=== PATIENT | male | born 1980 | race African-American/Black ===

== ENCOUNTER 2023-01-29 16:53 | Emergency (ER) | payer MEDICAID ==
[2023-01-29] MEDS ORDERED: fentaNYL 100 MCG/2 ML VIAL IVP STA ×2 (17:54→18:41)
[2023-01-29] MEDS ORDERED: DROPERIDOL 5 MG/2 ML VIAL IVP STA (17:54)
[2023-01-29] MEDS ORDERED: SODIUM CHLORIDE 0.9% 1,000 ML IV STA (17:54)
--- NOTE | 2023-01-29 17:55 | ED Physician Documentation ---
PD HPI ABD PAIN - Stated complaint Stated Complaint: VOMIT - Chief complaint Chief Complaint: Abd Pain - History obtained from History obtained from: Patient - Additional information Additional information: 42-year-old gentleman with history of hypertension, has been out of his medications for a long time. He developed stomach upset yesterday, but today has been having severe generalized abdominal pain associate with vomiting and slightly runny stools. No sick contacts. He smokes cigarettes but denies alcohol or cannabis use. He has a history of a significant severe reaction to morphine. PD PAST MEDICAL HISTORY - Past Medical History Past Medical History: Yes Cardiovascular: Hypertension - Past Surgical History Past Surgical History: No - Allergies Allergies/Adverse Reactions: Allergies Allergy/AdvReac Type Severity Reaction Status Date / Time morphine Allergy Unknown Verified 01/29/23 17:17 - Social History Does the pt smoke?: No Smoking Status: Never smoker PD ED PE NORMAL - Vitals Vital signs reviewed: Yes - General General: Alert and oriented X 3, Other (Writhing in pain and uncomfortable) - Cardiac Cardiac: RRR, No murmur - Respiratory Respiratory: No respiratory distress, Clear bilaterally - Abdomen Abdomen: Soft, Non tender - Neuro Neuro: Alert and oriented X 3 Results - Vitals Vitals: Vital Signs - 24 hr 01/29/23 01/29/23 01/29/23 17:14 19:16 21:31 Temperature 36.3 C L 36.4 C L Heart Rate 96 72 81 Respiratory 18 18 16 Rate Blood Pressure 177/118 H 155/90 H 164/84 H O2 Saturation 99 98 97 Oxygen O2 Source Room air - EKG (time done) 1822 EKG releavant findings:: EKG personally interpreted by author of this note. Relevant findings are: Rate: Rate (enter#) (72) Rhythm: NSR (w freq pvcs) [place]: Normal Intervals: Normal DC QRS: Normal Ischemia: Normal ST segments - Labs Labs: Laboratory Tests 01/29/23 01/29/23 01/29/23 18:18 18:18 18:41 WBC 9.4 RBC 6.05 Hgb 16.8 Hct 50.1 MCV 82.8 MCH 27.8 MCHC 33.5 RDW 13.5 Plt Count 289 MPV 10.4 Neut # (Auto) 7.4 H Lymph # (Auto) 1.5 Faulk # (Auto) 0.5 Eos # (Auto) 0.0 Baso # (Auto) 0.0 Absolute Nucleated RBC 0.00 Nucleated RBC % 0.0 Sodium 138 Potassium 3.8 Chloride 102 Carbon Dioxide 25 Anion Gap 11.0 BUN 11 Creatinine 1.0 Estimated GFR (MDRD) 82 L Glucose 108 H Calcium 10.7 H Total Bilirubin 0.7 AST 25 ALT 20 Alkaline Phosphatase 82 Total Protein 8.5 Albumin 5.0 Globulin 3.5 Albumin/Globulin Ratio 1.4 Lipase 18 Urine Color YELLOW Urine Clarity CLEAR Urine pH 8.5 H Ur Specific [place] 1.015 Urine Protein 30 H Urine Glucose (UA) NEGATIVE Urine Ketones NEGATIVE Urine Occult Blood NEGATIVE Urine Nitrite NEGATIVE Urine Bilirubin NEGATIVE Urine Urobilinogen 0.2 (NORMAL) Ur Leukocyte Esterase NEGATIVE Urine RBC 0-5 Urine WBC 0-3 Ur Squamous Epith Cells RARE Squamous Urine Bacteria None Seen Urine Mucus Few Strands Ur Microscopic Review INDICATED Urine Culture Comments NOT INDICATED Urine Opiates Screen NEGATIVE Ur Buprenorphine Scrn NEGATIVE Ur Oxycodone Screen NEGATIVE Urine Methadone Screen NEGATIVE Ur Barbiturates Screen NEGATIVE Ur Tricyclics Screen NEGATIVE Ur Phencyclidine Scrn NEGATIVE Ur Amphetamine Screen NEGATIVE U Methamphetamines Scrn NEGATIVE U Benzodiazepines Scrn NEGATIVE Urine Cocaine Screen NEGATIVE U Cannabinoids Screen POSITIVE H Ur Drug Screen Comment CUTOFF CONC BELOW: - Rads (name of study) CT abdomen pelvis normal with exception of bladder wall thickening Relevant Findings:: Final report received, EMP independent interpretation of test PD Medical Decision Making - ED course ED course: He presents with abdominal pain that actually was very reminiscent of komal abinoid hyperemesis. Initially denied cannabis use, but drug screen was positive. Subsequently stated he did use daily. Initially got relief with fentanyl noting he has a morphine allergy and nausea medicine and subsequently much better after the administration of Haldol. He was nontender on reexamination prior to discharge. Departure - Departure Disposition: 01 Home, Self Care Clinical Impression: Abdominal pain Instructions: ED Abdominal Pain Unkn Cause Male Comments: The only abnormal result of significance was your bladder wall was thick on CT exam. You had a normal urinalysis so I do not think this is relatable to the current pain which again I think is related to cannabinoid hyperemesis given the pattern; Please decrease or cease use of cannabis.. That said you should follow-up with urologist for consideration for cystoscopy. Call your doctor to arrange a follow-up appointment, make the next available appointment. In the interim, return anytime if worse or if new symptoms develop. Forms: PCP List Discharge Date/Time: 01/29/23 21:32
[2023-01-29] MEDS ORDERED: METOCLOPRAMIDE 10 MG/2 ML VIAL IVP STA (18:04)
[2023-01-29 18:24] LABS: BASOPHILS % (AUTO) 0.4 %; EOSINOPHILS % (AUTO) 0.2 %; HCT - HEMATOCRIT 50.1 % (42.0-52.0); HGB - HEMOGLOBIN 16.8 g/dL (14.0-18.0); LYMPHOCYTES # (AUTO) 1.5 10^3/uL (1.5-3.5); LYMPHOCYTES % (AUTO) 15.8 %; MEAN CORPUSCULAR HEMOGLOBIN 27.8 pg (27.0-31.0); MEAN CORPUSCULAR HGB CONC 33.5 g/dL (32.0-36.0); MEAN CORPUSCULAR VOLUME 82.8 fL (80.0-94.0); MEAN PLATELET VOLUME 10.4 fL (7.4-11.4); MONOCYTES # (AUTO) 0.5 10^3/uL (0.0-1.0); MONOCYTES % (AUTO) 4.8 %; NEUTROPHILS # (AUTO) 7.4 10^3/uL (1.5-6.6); NEUTROPHILS % (AUTO) 78.5 %; PLT - PLATELET COUNT 289 10^3/uL (130-450); RED BLOOD COUNT 6.05 10^6/uL (4.70-6.10); RED CELL DISTRIBUTION WIDTH 13.5 % (12.0-15.0); WHITE BLOOD COUNT 9.4 x10^3/uL (4.8-10.8)
[2023-01-29 18:40] LABS: ALBUMIN/GLOBULIN RATIO 1.4 (1.0-2.2); BILIRUBIN,TOTAL 0.7 mg/dL (0.2-1.0); CALCIUM 10.7 mg/dL (8.5-10.3); POTASSIUM 3.8 mmol/L (3.5-4.5); TOTAL PROTEIN 8.5 g/dL (6.4-8.9)
[2023-01-29 18:54] LABS: BILIRUBIN,URINE NEGATIVE (NEGATIVE); GLUCOSE, URINE (UA) NEGATIVE (NEGATIVE); KETONES,URINE (UA) NEGATIVE (NEGATIVE); LEUKOCYTE ESTERASE, URINE NEGATIVE (NEGATIVE); NITRITE,URINE NEGATIVE (NEGATIVE); OCCULT BLOOD,URINE NEGATIVE (NEGATIVE); PH,URINE 8.5 PH (5.0-7.5); PROTEIN,URINE 30 mg/dL (NEGATIVE); UROBILINOGEN,URINE 0.2 (NORMAL) E.U./dL (NORMAL)
[2023-01-29 18:57] LABS: CLARITY,URINE CLEAR (CLEAR)
[2023-01-29] MEDS ORDERED: iohexoL-300 100 ML VIAL IVP ONE (19:02)
[2023-01-29 19:08] LABS: RBC,URINE 0-5 /HPF (0-5); SQUAMOUS EPITHELIAL CELL,UR RARE Squamous (<= Few); WBC,URINE 0-3 /HPF (0-3)
[2023-01-29 19:09] LABS: AMPHETAMINE SCREEN,URINE NEGATIVE (NEGATIVE); BACTERIA,URINE None Seen /HPF (None Seen); BARBITURATE SCREEN,UR NEGATIVE (NEGATIVE); BENZODIAZEPINES SCREEN, URINE NEGATIVE (NEGATIVE); BUPRENORPHINE SCREEN, URINE NEGATIVE (NEGATIVE); COCAINE SCREEN URINE NEGATIVE (NEGATIVE); METHADONE SCREEN, URINE NEGATIVE (NEGATIVE); METHAMPHETAMINES SCREEN, URINE NEGATIVE (NEGATIVE); MUCUS,URINE Few Strands; OPIATE SCREEN, URINE NEGATIVE (NEGATIVE); OXYCODONE SCREEN, URINE NEGATIVE (NEGATIVE); THC CANNABINOID SCREEN, URINE POSITIVE (NEGATIVE); TRICYCLIC ANTIDEPRESSANT,URINE NEGATIVE (NEGATIVE)
[2023-01-29] MEDS ORDERED: HALOPERIDOL 5 MG/ML VIAL IVP STA (19:47)
[2023-01-29] MEDS ORDERED: KETOROLAC 15 MG/ML VIAL IVP STA (19:47)
--- NOTE | 2023-01-29 20:18 | CT Report ---
PROCEDURE: ABDOMEN/PELVIS W INDICATIONS: IV only, abd pain CONTRAST: 100mL Omni 300 TECHNIQUE: After the administration of IV contrast, 5 mm thick sections acquired from the diaphragms to the symp hysis. 5 mm thick coronal and sagittal reformats were acquired. For radiation dose reduction, the f ollowing was used: automated exposure control, adjustment of mA and/or kV according to patient size. COMPARISON: None FINDINGS: Image quality: Excellent. Lung bases and heart: Unremarkable. Liver: No solid mass. Gallbladder and biliary tree: No radiopaque stones or wall thickening. No biliary dilation. Spleen: No splenomegaly. A few calcified granuloma are seen scattered in splenic parenchyma. Pancreas: No pancreatic ductal dilation. Adrenals: No adrenal nodule. Kidneys and ureters: No hydronephrosis. No renal cystic lesion which requires follow up. No solid mas s. Bowel and peritoneum: No bowel distension. No pathologic free fluid. The appendix is visualized in ri ght lower quadrant and is normal in size and appearance. Mild fecal stasis in the colon is seen. Lymph nodes: No central or retroperitoneal adenopathy. Vessels: No infrarenal aortic aneurysm. PELVIS Reproductive organs: Unremarkable. Bladder: Marked bladder wall thickening is noted, mild pericystic fat stranding is seen. Pelvic lymph nodes: No pelvic adenopathy by size criteria. Bones: No aggressive osseous abnormality. Other: No significant ventral or inguinal hernia. IMPRESSION: 1. Marked diffuse bladder wall thickening concerning for infectious or inflammatory cystitis. Underly ing bladder wall mass cannot be excluded. No renal stones or hydronephrosis. No significant perinephr ic fat stranding. 2. No bowel obstruction or abnormal bowel wall thickening. No free fluid of free air. Normal appendix . Reviewed by: Ruben Lee MD on 01/29/2023 8:16 PM PST Approved by: Ruben Lee MD on 01/29/2023 8:16 PM PST Station ID: [id number]
[2023-01-29] MEDS ORDERED: ONDANSETRON ODT 4 MG Prepack 2 TL STA (20:50)
[2023-01-29] MEDS ORDERED: oxyCODONE/ACET 5/325 Prepack 4 PO STA (20:50)
[2023-01-29 21:41] VITALS: BP 164/84; O2SAT 97
== END 2023-01-29 21:32 | disposition home or self-care (01) ==
LOC: ED 16:53
DX: R10.84 Generalized abdominal pain (principal); F17.210 Nicotine dependence, cigarettes, uncomplicated
CPT/HCPCS: 36415; 74177; 80053; 80306; 81001; 83690; 85025; 93005; 96374; 96375; 96376; 99283; 99284; J2765; Q9967; 81003; 87086

== ENCOUNTER 2023-02-16 15:30 | Outpatient (CLI) | payer MEDICAID ==
--- NOTE | 2023-02-17 22:37 | XRAY Report ---
PROCEDURE: Foot 3+V LT INDICATIONS: DISPLACED UNSPECIFIED FRACTURE OF LEFT LESSER TOE TECHNIQUE: 3 views of the foot were acquired. COMPARISON: None. FINDINGS: Bones: No acute fractures or dislocations. There is a fracture deformity without acute fracture erum ne involving the first proximal phalanx extending to the articular surface. Mild pes planus deformity . No suspicious bony lesions. Soft tissues: No suspicious soft tissue calcifications or masses. IMPRESSION: 1. No acute fractures. 2. Probable remote first proximal phalanx fracture. Reviewed by: Neisha Heath MD on 02/17/2023 10:36 PM PST Approved by: Neisha Heath MD on 02/17/2023 10:36 PM PST Station ID: [id number]
== END 2023-02-16 15:45 | disposition home or self-care (01) ==
LOC: DI.N 15:30
PROVIDERS: ATTEND Family Medicine
DX: M21.6X2 Other acquired deformities of left foot (principal); M21.42 Flat foot [pes planus] (acquired), left foot

== ENCOUNTER 2023-05-02 15:10 | Outpatient (CLI) | payer MEDICAID ==
--- NOTE | 2023-05-03 14:59 | XRAY Report ---
PROCEDURE: Knee 4+V LT INDICATIONS: PAIN IN LEFT KNEE TECHNIQUE: 4 views of the knee(s) were acquired. COMPARISON: None. FINDINGS: Bones: No fractures or dislocations. No suspicious bony lesions. Mild tricompartmental knee joint d egeneration. Minimal joint space narrowing with weightbearing. Soft tissues: Small knee joint effusion. No suspicious soft tissue calcifications or masses. IMPRESSION: 1. No acute bony abnormality. 2. Mild degenerative joint disease. 3. Small knee joint effusion. Reviewed by: Raj Estes MD on 05/03/2023 1:58 PM AKDT Approved by: Raj Estes MD on 05/03/2023 1:58 PM AKDT Station ID: [id number]
== END 2023-05-02 15:11 | disposition home or self-care (01) ==
LOC: DI.N 15:10
PROVIDERS: ATTEND Nurse Practitioner
DX: M17.12 Unilateral primary osteoarthritis, left knee (principal); M25.462 Effusion, left knee

== ENCOUNTER 2023-05-14 07:30 | Outpatient (CLI) | payer MEDICAID ==
--- NOTE | 2023-05-14 14:52 | XRAY Report ---
PROCEDURE: Knee 1 View BILAT INDICATIONS: LEFT KNEE PAIN, BILAT AP FOR COMP TECHNIQUE: 1 views of the knee(s) were acquired. COMPARISON: Left knee radiograph on May 02, 2023. FINDINGS: Evaluation is limited on single view. Bones: No definite fractures or dislocations. Mild medial compartment joint space narrowing. No susp icious bony lesions. Soft tissues: No suspicious soft tissue calcifications or masses. IMPRESSION: Mild bilateral symmetric medial compartment joint space narrowing. Reviewed by: Milvia Zuniga MD on 05/14/2023 2:50 PM PDT Approved by: Milvia Zuniga MD on 05/14/2023 2:50 PM PDT Station ID: [id number]
== END 2023-05-14 23:59 | disposition home or self-care (01) ==
LOC: DI.WOS 07:30
PROVIDERS: ATTEND Physician Assistant Surgical
DX: M25.862 Other specified joint disorders, left knee (principal); M25.861 Other specified joint disorders, right knee

== ENCOUNTER 2023-07-10 16:31 | Outpatient (CLI) | payer MEDICAID ==
--- NOTE | 2023-07-11 09:36 | MRI Report ---
PROCEDURE: Knee LT WO INDICATIONS: MENISCUS DERANGEMENT L KNEE TECHNIQUE: Noncontrast sagittal PD fast spin echo and T2 fast spin echo with fat saturation, sagittal 3-D gradie nt sequence with fat saturation; coronal T1 spin echo and PD fast spin echo with fat saturation, and axial PD fast spin echo with fat saturation through the knee. COMPARISON: Bilateral knee radiograph dated 05/14/2023 left knee radiograph dated 05/02/2023. FINDINGS: Image quality: Excellent. Menisci: Oblique tear involving posterior horn of medial meniscus is seen extending to inferior artic ulating surface. The lateral meniscus is intact. The meniscal root ligaments appear intact. Cruciate ligaments: The anterior cruciate ligament is mildly thickened. The posterior cruciate ligam ent is intact. Medial structures: The medial collateral ligament appears intact. Visualized portions of the pes ans erinus tendons appear normal. No abnormal bursal fluid. Lateral structures: The lateral collateral ligament is thickened at its femoral insertion with intra substance T2 hyperintense signal. The long and short heads of the biceps femoris tendon appear mildly thickened. The popliteus tendon appears normal. Iliotibial band appears normal. Anterior structures: Distal quadriceps tendinosis at its superior patella insertion is seen. The hairston lla tendon is intact. Patellar alignment is normal. No femoral trochlear dysplasia or ventral trochl ear prominence. No edema in the infrapatellar fat pad. Bones and cartilage: No bone marrow contusions or fractures. Low-grade chondromalacia in medial femo ral tibial compartment. Joint space: There is moderate knee joint fluid. There is a tiny popliteal cyst. Normal appearing sy novial plicae are incidentally noted. IMPRESSION: 1. Oblique tear involving posterior horn of medial meniscus extending to inferior articulating surfac e. The lateral meniscus is intact. 2. Suggestion of low-grade ACL sprain. No ACL rupture. PCL is intact. 3. Low to moderate grade proximal LCL sprain/partial thickness tear. Distal biceps femoris tendinosis . 4. Distal quadriceps tendinosis. 5. Low-grade chondromalacia in medial femoral tibial compartment. No fracture or dislocation. Moderat e joint effusion and a tiny popliteal cyst. No loose bodies. Reviewed by: Ruben Lee MD on 07/11/2023 9:35 AM PDT Approved by: Ruben Lee MD on 07/11/2023 9:35 AM PDT Station ID: [id number]
== END 2023-07-10 16:32 | disposition home or self-care (01) ==
LOC: DI 16:31
PROVIDERS: ATTEND Physician Assistant Surgical
DX: S83.242A Other tear of medial meniscus, current injury, left knee, initial encounter (principal); S83.422A Sprain of lateral collateral ligament of left knee, initial encounter; M67.864 Other specified disorders of tendon, left knee; M94.262 Chondromalacia, left knee; M25.462 Effusion, left knee; M71.22 Synovial cyst of popliteal space [Baker], left knee

== ENCOUNTER 2023-09-06 14:47 | Outpatient (CLI) | payer MEDICAID ==
--- NOTE | 2023-09-06 17:09 | XRAY Report ---
PROCEDURE: Knee 3V LT INDICATIONS: PAIN IN LEFT KNEE TECHNIQUE: 3 views of the knee(s) were acquired. COMPARISON: 05/14/2023, MRI 07/10/2023, 05/02/2023 FINDINGS: Bones: No fractures or dislocations. No suspicious bony lesions. No new loose bodies in the joint . There is slight irregularity of the medial condyle in the patellofemoral compartment. Soft tissues: Moderate sized knee joint effusion. No suspicious soft tissue calcifications or masses . IMPRESSION: Moderate joint effusion, present on prior MRI. No new fracture. Reviewed by: Neisha Heath MD on 09/06/2023 5:07 PM PDT Approved by: Neisha Heath MD on 09/06/2023 5:07 PM PDT Station ID: [id number]
== END 2023-09-06 14:48 | disposition home or self-care (01) ==
LOC: DI.N 14:47
DX: M25.462 Effusion, left knee (principal)

== ENCOUNTER 2023-10-23 09:30 | Outpatient (CLI) | payer MEDICAID ==
[2023-10-23 12:28] LABS: BASOPHILS # (AUTO) 0.1 10^3/uL (0.0-0.1); BASOPHILS % (AUTO) 0.9 %; EOSINOPHILS # (AUTO) 0.2 10^3/uL (0.0-0.7); HCT - HEMATOCRIT 44.5 % (42.0-52.0); HGB - HEMOGLOBIN 14.8 g/dL (14.0-18.0); LYMPHOCYTES # (AUTO) 1.7 10^3/uL (1.5-3.5); LYMPHOCYTES % (AUTO) 30.2 %; MEAN CORPUSCULAR HEMOGLOBIN 28.5 pg (27.0-31.0); MEAN CORPUSCULAR HGB CONC 33.3 g/dL (32.0-36.0); MEAN CORPUSCULAR VOLUME 85.7 fL (80.0-94.0); MEAN PLATELET VOLUME 11.1 fL (7.4-11.4); MONOCYTES # (AUTO) 0.5 10^3/uL (0.0-1.0); MONOCYTES % (AUTO) 9.7 %; NEUTROPHILS # (AUTO) 3.1 10^3/uL (1.5-6.6); PLT - PLATELET COUNT 241 10^3/uL (130-450); RED BLOOD COUNT 5.19 10^6/uL (4.70-6.10); RED CELL DISTRIBUTION WIDTH 13.9 % (12.0-15.0); WHITE BLOOD COUNT 5.6 x10^3/uL (4.8-10.8)
[2023-10-23 12:56] LABS: ALBUMIN 4.3 g/dL (3.2-5.5); ALBUMIN/GLOBULIN RATIO 1.7 (1.0-2.2); ALKALINE PHOSPHATASE 51 IU/L (42-121); ALT ALANINE AMINOTRANSFERASE 17 IU/L (10-60); AST ASPARTATE AMINOTRANSFERASE 24 IU/L (10-42); BILIRUBIN,TOTAL 0.8 mg/dL (0.2-1.0); BUN - BLOOD UREA NITROGEN 10 mg/dL (6-20); CALCIUM 9.3 mg/dL (8.5-10.3); CARBON DIOXIDE - CO2 30 mmol/L (21-32); CHLORIDE 104 mmol/L (101-111); CHOL/HDL RATIO 3.8 (<5.0); CHOLESTEROL 152 mg/dL; GFR - MDRD 100 (>89); GLUCOSE 93 mg/dL (74-104); HDL CHOLESTEROL 40 mg/dL; LDL CHOLESTEROL,CALCULATED 94 mg/dL; LDL/HDL RATIO 2.4 (<3.6); POTASSIUM 3.8 mmol/L (3.5-4.5); SODIUM 138 mmol/L (135-145); THYROID STIMULATING HORMONE 2.44 uIU/mL (0.34-5.60); TOTAL PROTEIN 6.8 g/dL (6.4-8.9); TRIGLYCERIDES 89 mg/dL; VLDL CHOLESTEROL 18 mg/dL
== END 2023-10-23 09:31 | disposition home or self-care (01) ==
LOC: LAB.N 09:30
PROVIDERS: ATTEND Registered Nurse
DX: Z51.81 Encounter for therapeutic drug level monitoring (principal); Z79.899 Other long term (current) drug therapy
CPT/HCPCS: 36415; 80053; 80061; 83721; 84443; 85025